=== PATIENT | male | born 1965 | race Caucasian/White ===

== ENCOUNTER → 2021-02-01 15:32 | Outpatient (BNVA) | payer OTHER, SELFPAY | PROVIDERS: Visit Provider Nurse Practitioner Family | DX: Z20.822 Contact with and (suspected) exposure to COVID-19 (principal); J06.9 Acute upper respiratory infection, unspecified | CPT/HCPCS: 87635 ==

== ENCOUNTER 2024-08-16 08:11 | Emergency (ER) | payer OTHER, SELFPAY ==
[2024-08-16 08:21] VITALS: BP 182/113; PULSE 90; RESP 17; TEMP 36.4; O2SAT 97; BMI 32.3
[2024-08-16 08:23] VITALS: BP 212/121
--- NOTE | 2024-08-16 08:27 | ED_ITS ---
HPI - Male Genitourinary General: Chief complaint: Urogenital-Male Stated complaint: unable to urinate Time Seen by Provider: 08/16/24 08:28 History of Present Illness: Patient presents to the ER with bladder pain and acute urinary retention. He says he has been unable to urinate anything at all since 4 AM this morning patient has had this happen before but never been this severe. Patient does not have any prostate history that he is aware of. Related Data Home Medications ?Medication ?Instructions ?Recorded ?Confirmed No Known Home Medications 08/16/2407/20 Allergies Allergy/AdvReac Type Severity Reaction Status Date / Time No Known Allergies Allergy Unverified 02/24/24 17:57 Review of Systems General: Reports: 10 or more systems reviewed and unremarkable except in HPI and below PFSH ED PFSH: Social History Smoking and tobacco/nicotine status: never used tobacco/nicotine Physical Exam Neck/C-Spine: COMMON NORMALS: no JVD Chest: COMMONS NORMALS: normal inspection of the chest and normal palpation of entire chest wall Resp: COMMON NORMALS: normal respiratory effort, No retractions, No use of accessory muscles and clear to auscultation bilaterally AUSCULTATION: clear to auscultation bilaterally Cardio: COMMON NORMALS: no JVD, regular rate, regular rhythm, S1 normal heart sound present, S2 normal heart sound present, No gallops present (Cardio), No clicks present (Cardio), No murmurs present (Cardio) and No rub (Cardio) RATE: regular rate RHYTHM: regular rhythm HEART SOUNDS: S1 normal heart sound present and S2 normal heart sound present GI: COMMON NORMALS: Normal to inspection, nondistended, normoactive bowel sounds present, Soft to palpation, non-tender, No hepatosplenomegaly present and no masses PALPATION: Yes Soft to palpation and Yes No hepatosplenomegaly present Course Vital Signs: Vital signs: Vital Signs Temperature 97.6 F 08/16/24 08:21 Pulse Rate 80 08/16/24 09:55 Respiratory Rate 17 08/16/24 08:21 Blood Pressure 140/87 08/16/24 09:55 Pulse Oximetry 99 08/16/24 09:55 Oxygen Delivery Me thod Room Air 08/16/24 08:21 MDM - Male Medical Decision Making Patient presented with acute urinary retention, Moody catheter was placed approximately 600 mL urine was obtained. Patient felt immediate relief. Urinalysis was unremarkable except for 2+ blood probably due to the catheter placement. Discussion was made to the patient and the about whether we keep the catheter in or not they are willing to DC the catheter in and go home on a trial since this is his first time with retention. Medical Records I reviewed the patient's medical records. Lab Data I reviewed the patient's lab results. Laboratory Results Urine Color Yellow (Yellow) 08/16/24 08:49 Urine Appearance Clear (CLEAR) 08/16/24 08:49 Urine pH 7 (5-7) 08/16/24 08:49 Ur Specific [place] 1.010 (1.005-1.030) 08/16/24 08:49 Urine Protein Neg (Negative) 08/16/24 08:49 Urine Glucose (UA) Norm (Normal) 08/16/24 08:49 Urine Ketones Negative (Negative) 08/16/24 08:49 Urine Blood 2+ (Negative) H 08/16/24 08:49 Urine Nitrate Negative (Negative) 08/16/24 08:49 Urine Bilirubin Neg (Negative) 08/16/24 08:49 Urine Urobilinogen Neg mg/dL (Negative) 08/16/24 08:49 Ur Leukocyte Esterase Negative (Negative) 08/16/24 08:49 Urine RBC 6-10 /hpf (0-2) 08/16/24 08:49 Urine WBC 0-5 /hpf (0-5) 08/16/24 08:49 Ur Squamous Epith Cells 0-5 /hpf (0-5) 08/16/24 08:49 Amorphous Sediment Not Reportable 08/16/24 08:49 Urine Bacteria None seen /hpf (NONE) 08/16/24 08:49 Hyaline Casts 0-4 /lpf H 08/16/24 08:49 All radiology interpretation(s) finalized by discharge Discharge Plan Discharge Patient Disposition: Home Clinical Impression: Acute retention of urine Condition: Stable Prescriptions: No Action No Known Home Medications Discharge Orders: Discharge ED (Routine); Ordered 08/16/24 Ordered By: Chris Pelayo Patient Instructions: Urinary Retention in Men (ED) Activity Restrictions/Additional Instructions: Please push plenty of fluids and continually try to urinate when needed. If you are unable to urinate please return to the ER and we will have to replace the Moody catheter. Thank you for choosing [facility] for your healthcare needs today. Please realize that you were seen in the emergency department and that we are providing you with an emergency medical screening exam and this may not be a complete and all exclusive of all testing and/or medical workup we may need to determine your element or severity of your illness. It is very important that you follow-up as instructed with your primary care provider or specialist for the additional evaluation and to discuss your medical treatment plan. You may return to the emergency department should you have conc erns or if your condition changes or worsens in any way. Print Language: Bahamian Coding Level of Care Code ED School Age Program Teacher for Zeina Lovelace
[2024-08-16 09:22] LABS: Bacteria Urine None Seen /hpf; Hyaline Casts Urine 0-4 /lpf; Squamous Epithelial Cell Urine 0-5 /hpf (0-5); WBC Urine 0-5 /hpf (0-5)
[2024-08-16 09:23] VITALS: BP 146/87
[2024-08-16 09:27] LABS: Add Urine Microscopic? YES; Bilirubin Urine Neg (Negative); Blood Urine 2+ (Negative); Glucose Urine UA Norm (Normal); Ketones Urine Negative (Negative); Leukocyte Esterase Urine Negative (Negative); Nitrate Urine Negative (Negative); Protein Urine Neg (Negative); Urine Appearance Clear (CLEAR); Urine Color Yellow (Yellow); Urobilinogen Urine Neg (Negative); pH Urine 7 (5-7)
[2024-08-16 09:55] VITALS: BP 140/87; PULSE 80; O2SAT 99
--- NOTE | 2024-08-16 09:57 | PC.NURSE ---
Removed patient's sauceda prior to discharge.
== END 2024-08-16 09:57 | disposition home or self-care (01) ==
PROVIDERS: Emergency Provider Emergency Medicine
DX: R33.8 Other retention of urine (principal)
CPT/HCPCS: 51702; 81001; 99283

== ENCOUNTER 2024-09-25 05:22 | Emergency (ER) | payer OTHER, SELFPAY ==
[2024-09-25 05:25] VITALS: BP 197/108; PULSE 89; RESP 16; TEMP 37.1; O2SAT 98; BMI 32.3
--- NOTE | 2024-09-25 05:37 | ED_ITS ---
Documented by User: Gregory Broderick MD 09/25/24 05:51 HPI - Male Genitourinary 2 General: Chief complaint: Urogenital-Male Stated complaint: Can't Pee Time Seen by Provider: 09/25/24 05:24 History of Present Illness: Patient presents emerged permit with complaint of urinary retention. Patient states that he has not been able to urinate since several hours ago. He states that 1 month ago he had a episode of urinary retention and had a Moody catheter placed. He had his Moody catheter removed but never followed up with urology. He has been taking an [id number] prostate supplement for the past month. He states that he was urinating fine until tonight. Has some suprapubic tenderness because of unable to urinate. Related Data Previous Rx's ?Medication ?Instructions ?Recorded cephalexin 500 mg tablet 500 mg PO TID 7 days #21 tab s 09/25/24 tamsulosin 0.4 mg capsule (Flomax) 0.4 mg PO DAILY #30 caps 09/25/24 Allergies Allergy/AdvReac Type Severity Reaction Status Date / Time No Known Allergies Allergy Verified 09/25/24 05:29 [facility] ED 2 PFSH: Social History Smoking and tobacco/nicotine status: never used tobacco/nicotine Physical Exam 2 Const: COMMON NORMALS: no acute distress, average body habitus, patient oriented x3, no limitations, healthy appearing, alert and well nourished Neck/C-Spine: COMMON NORMALS: no JVD Resp: COMMON NORMALS: normal respiratory effort, No retractions, No use of accessory muscles, clear to auscultation bilaterally and percussion normal A USCULTATION: clear to auscultation bilaterally PERCUSSION: percussion normal Cardio: COMMON NORMALS: no JVD, regular rate, regular rhythm, S1 normal heart sound present, S2 normal heart sound present, No gallops present (Cardio), No clicks present (Cardio), No murmurs present (Cardio), No rub (Cardio) and Peripheral pulses 2+ throughout RATE: regular rate RHYTHM: regular rhythm HEART SOUNDS: S1 normal heart sound present and S2 normal heart sound present PERIPHERAL PULSES: Peripheral pulses 2+ throughout GI: COMMON NORMALS: Normal to inspection, nondistended, normoactive bowel sounds present, Soft to palpation, No hepatosplenomegaly present, no masses and no bruits; negative for non-tender (Suprapubic tenderness) PALPATION: Yes Soft to palpation and Yes No hepatosplenomegaly present Neuro: COMMON NORMALS: patient oriented x3 SENSORIUM/ORIENTATION: Yes alert Course 2 Vital Signs: Vital signs: Vital Signs Temperature 98.8 F 09/25/24 05:25 Pulse Rate 65 09/25/24 06:41 Respiratory Rate 16 09/25/24 05:25 Blood Pressure 157/91 09/25/24 06:41 Pulse Oximetry 96 09/25/24 06:41 Oxygen Delivery Me thod Room Air 09/25/24 05:25 MDM - Male Medical Decision Making Patient presents emerged part with complaint of urinary retention. Had a history of similar [address] Moody catheter and start patient on Flomax. Patient will need to follow-up with urology. Lab Data 09/25/24 06:16 09/25/24 06:16 Laboratory Results WBC 5.75 10^3/uL (3.29-11.43) 09/25/24 06:16 RBC 4.79 10^6/uL (3.85-5.65) 09/25/24 06:16 Hgb 13.80 g/dL (11.27-16.99) 09/25/24 06:16 Hct 42.5 % (37-53) 09/25/24 06:16 MCV 88.7 fl (82-101) 09/25/24 06:16 MCH 28.8 pg (27-33) 09/25/24 06:16 MCHC 32.5 g/dL (30-55) 09/25/24 06:16 RDW 13.8 % (12.1-15.1) 09/25/24 06:16 Plt Count 163 10^3/cmm (157-399) 09/25/24 06:16 MPV 10.1 fL (7.4-10.4) 09/25/24 06:16 Neut % (Auto) 68.6 % 09/25/24 06:16 Lymph % (Auto) 19.7 % 09/25/24 06:16 [place] % (Auto) 8.5 % 09/25/24 06:16 Eos % (Auto) 1.6 % 09/25/24 06:16 Baso % (Auto) 0.9 % 09/25/24 06:16 Neut # (Auto) 3.95 10^3/uL (1.8-7.7) 09/25/24 06:16 Lymph # (Auto) 1.1 10^3/uL (0.8-4.8) 09/25/24 06:16 [place] # (Auto) 0.5 10^3/uL (0.2-0.9) 09/25/24 06:16 Eos # (Auto) 0.1 10^3/uL (0.0-0.8) 09/25/24 06:16 Baso # (Auto) 0.1 10^3/uL (0.0-0.1) 09/25/24 06:16 Nucleated RBC % (auto) 0 % 09/25/24 06:16 Nucleated RBCs # 0.0 /100WBC 09/25/24 06:16 Sodium 139 mmol/L (136-145) 09/25/24 06:16 Potassium 3.9 mmol/L (3.5-5.1) 09/25/24 06:16 Chloride 104 mmol/L (98-107) 09/25/24 06:16 Carbon Dioxide 26 mmol/L (22-29) 09/25/24 06:16 Anion Gap 12.9 (5-19) 09/25/24 06:16 BUN 15 mg/dL (6-20) 09/25/24 06:16 Creatinine 1.1 mg/dL (0.7-1.2) 09/25/24 06:16 GFR Calculation 68.5 mL/min (90-130) L 09/25/24 06:16 Glucose 126 mg/dL (65-115) H 09/25/24 06:16 Calculated Osmolality 290 mOsm/kg (285-295) 09/25/24 06:16 Calcium 9.0 mg/dL (8.5-10.5) 09/25/24 06:16 Total Bilirubin 0.3 mg/dL (0.15-1.2) 09/25/24 06:16 AST 15 U/L (0-40) 09/25/24 06:16 ALT 20 U/L (0-41) 09/25/24 06:16 Alkaline Phosphatase 112 U/L (40-130) 09/25/24 06:16 Total Protein 6.9 g/dL (6.6-8.7) 09/25/24 06:16 Albumin 3.7 g/dL (3.5-5.2) 09/25/24 06:16 Globulin 3.2 g/dL (1.3-4.6) 09/25/24 06:16 Urine Color Yellow (Yellow) 09/25/24 05:43 Urine Appearance Clear (CLEAR) 09/25/24 05:43 Urine pH 6.5 (5-7) 09/25/24 05:43 Ur Specific [place] 1.009 (1.005-1.030) 09/25/24 05:43 Urine Protein Negative (Negative) 09/25/24 05:43 Urine Glucose (UA) Negative (Normal) 09/25/24 05:43 Urine Ketones Negative (Negative) 09/25/24 05:43 Urine Blood Negative (Negative) 09/25/24 05:43 Urine Nitrate Negative (Negative) 09/25/24 05:43 Urine Bilirubin Negative (Negative) 09/25/24 05:43 Urine Urobilinogen 0.2 mg/dL (Negative) 09/25/24 05:43 Ur Leukocyte Esterase Negative (Negative) 09/25/24 05:43 Urine RBC 0-2 /hpf (0-2) 09/25/24 05:43 Urine WBC 0-5 /hpf (0-5) 09/25/24 05:43 Ur Squamous Epith Cells 0-5 /hpf (0-5) 09/25/24 05:43 Amorphous Sediment Not Reportable 09/25/24 05:43 Urine Bacteria None seen /hpf (NONE) 09/25/24 05:43 Hyaline Casts 0-4 /lpf H 09/25/24 05:43 No radiology studies performed this visit Discharge Plan Discharge Patient Disposition: Home Clinical Impression: Urinary retention Condition: Stable Prescriptions: New tamsulosin [Flomax] 0.4 mg capsule 0.4 mg PO DAILY Qty: 30 0RF cephalexin 500 mg tablet 500 mg PO TID 7 Days Qty: 21 0RF Discharge Orders: Discharge ED (Routine); Ordered 09/25/24 Ordered By: Olga Delcid Referrals: Bismark Wilson [Referring, Urology] - 4-7 days Referral Note: Please call for follow-up with Dr. Wilson or with the urologist of your choosing Discharge Diet: Usual diet Discharge Activity: Increase activity as tolerated Patient Instructions: Moody Catheter Placement and Care (ED), How to Change a Catheter Drainage Bag (DC), Opioid Safety, Pain Management Activity Restrictions/Additional Instructions: Thank you for choosing [facility] for your healthcare needs today. You have been screened and evaluated and felt safe for discharge. Health conditions do change or evolve sometimes and as such it is important that you follow up with your Primary Doctor to be re checked, 3-5 days is a general good time frame for follow up. You are always welcome to return to the ED for re assessment if your symptoms are worsening or you have new concerns Print Language: Chinese Coding Level of Care Code ED Real Estate Teacher for Chg Fwd Documented by User: Olga Delcid MD 09/25/24 06:46 HPI - Male Genitourinary 2 General: Chief complaint: Urogenital-Male Stated complaint: Can't Pee Time Seen by Provider: 09/25/24 05:24 Related Data Previous Rx's ?Medication ?Instructions ?Recorded cephalexin 500 mg tablet 500 mg PO TID 7 days #21 tab s 09/25/24 tamsulosin 0.4 mg capsule (Flomax) 0.4 mg PO DAILY #30 caps 09/25/24 Allergies Allergy/AdvReac Type Severity Reaction Status Date / Time No Known Allergies Allergy Verified 09/25/24 05:29 [facility] ED 2 PFS: Social History Smoking and tobacco/nicotine status: never used tobacco/nicotine Course 2 Vital Signs: Vital signs: Vital Signs Temperature 98.8 F 09/25/24 05:25 Pulse Rate 65 09/25/24 06:41 Respiratory Rate 16 09/25/24 05:25 Blood Pressure 157/91 09/25/24 06:41 Pulse Oximetry 96 09/25/24 06:41 Oxygen Delivery Me thod Room Air 09/25/24 05:25 MDM - Male Medical Decision Making Patient presents emerged part with complaint of urinary retention. Had a history of similar [address] Moody catheter and start patient on Flomax. Patient will need to follow-up with urology. Patient care transitioned to fl at shift change. 750 mL out. Moody being left in. Home on Flomax and Keflex. Follow with urology. Lab Data 09/25/24 06:16 09/25/24 06:16 Laboratory Results WBC 5.75 10^3/uL (3.29-11.43) 09/25/24 06:16 RBC 4.79 10^6/uL (3.85-5.65) 09/25/24 06:16 Hgb 13.80 g/dL (11.27-16.99) 09/25/24 06:16 Hct 42.5 % (37-53) 09/25/24 06:16 MCV 88.7 fl (82-101) 09/25/24 06:16 MCH 28.8 pg (27-33) 09/25/24 06:16 MCHC 32.5 g/dL (30-55) 09/25/24 06:16 RDW 13.8 % (12.1-15.1) 09/25/24 06:16 Plt Count 163 10^3/cmm (157-399) 09/25/24 06:16 MPV 10.1 fL (7.4-10.4) 09/25/24 06:16 Neut % (Auto) 68.6 % 09/25/24 06:16 Lymph % (Auto) 19.7 % 09/25/24 06:16 [place] % (Auto) 8.5 % 09/25/24 06:16 Eos % (Auto) 1.6 % 09/25/24 06:16 Baso % (Auto) 0.9 % 09/25/24 06:16 Neut # (Auto) 3.95 10^3/uL (1.8-7.7) 09/25/24 06:16 Lymph # (Auto) 1.1 10^3/uL (0.8-4.8) 09/25/24 06:16 [place] # (Auto) 0.5 10^3/uL (0.2-0.9) 09/25/24 06:16 Eos # (Auto) 0.1 10^3/uL (0.0-0.8) 09/25/24 06:16 Baso # (Auto) 0.1 10^3/uL (0.0-0.1) 09/25/24 06:16 Nucleated RBC % (auto) 0 % 09/25/24 06:16 Nucleated RBCs # 0.0 /100WBC 09/25/24 06:16 Sodium 139 mmol/L (136-145) 09/25/24 06:16 Potassium 3.9 mmol/L (3.5-5.1) 09/25/24 06:16 Chloride 104 mmol/L (98-107) 09/25/24 06:16 Carbon Dioxide 26 mmol/L (22-29) 09/25/24 06:16 Anion Gap 12.9 (5-19) 09/25/24 06:16 BUN 15 mg/dL (6-20) 09/25/24 06:16 Creatinine 1.1 mg/dL (0.7-1.2) 09/25/24 06:16 GFR Calculation 68.5 mL/min (90-130) L 09/25/24 06:16 Glucose 126 mg/dL (65-115) H 09/25/24 06:16 Calculated Osmolality 290 mOsm/kg (285-295) 09/25/24 06:16 Calcium 9.0 mg/dL (8.5-10.5) 09/25/24 06:16 Total Bilirubin 0.3 mg/dL (0.15-1.2) 09/25/24 06:16 AST 15 U/L (0-40) 09/25/24 06:16 ALT 20 U/L (0-41) 09/25/24 06:16 Alkaline Phosphatase 112 U/L (40-130) 09/25/24 06:16 Total Protein 6.9 g/dL (6.6-8.7) 09/25/24 06:16 Albumin 3.7 g/dL (3.5-5.2) 09/25/24 06:16 Globulin 3.2 g/dL (1.3-4.6) 09/25/24 06:16 Urine Color Yellow (Yellow) 09/25/24 05:43 Urine Appearance Clear (CLEAR) 09/25/24 05:43 Urine pH 6.5 (5-7) 09/25/24 05:43 Ur Specific [place] 1.009 (1.005-1.030) 09/25/24 05:43 Urine Protein Negative (Negative) 09/25/24 05:43 Urine Glucose (UA) Negative (Normal) 09/25/24 05:43 Urine Ketones Negative (Negative) 09/25/24 05:43 Urine Blood Negative (Negative) 09/25/24 05:43 Urine Nitrate Negative (Negative) 09/25/24 05:43 Urine Bilirubin Negative (Negative) 09/25/24 05:43 Urine Urobilinogen 0.2 mg/dL (Negative) 09/25/24 05:43 Ur Leukocyte Esterase Negative (Negative) 09/25/24 05:43 Urine RBC 0-2 /hpf (0-2) 09/25/24 05:43 Urine WBC 0-5 /hpf (0-5) 09/25/24 05:43 Ur Squamous Epith Cells 0-5 /hpf (0-5) 09/25/24 05:43 Amorphous Sediment Not Reportable 09/25/24 05:43 Urine Bacteria None seen /hpf (NONE) 09/25/24 05:43 Hyaline Casts 0-4 /lpf H 09/25/24 05:43 Discharge Plan Discharge Patient Disposition: Home Clinical Impression: Urinary retention Condition: Stable Prescriptions: New tamsulosin [Flomax] 0.4 mg capsule 0.4 mg PO DAILY Qty: 30 0RF cephalexin 500 mg tablet 500 mg PO TID 7 Days Qty: 21 0RF Discharge Orders: Discharge ED (Routine); Ordered 09/25/24 Ordered By: Olga Delcid Referrals: Bismark Wilson [Referring, Urology] - 4-7 days Referral Note: Please call for follow-up with Dr. Wilson or with the urologist of your choosing Discharge Diet: Usual diet Discharge Activity: Increase activity as tolerated Patient Instructions: Moody Catheter Placement and Care (ED), How to Change a Catheter Drainage Bag (DC), Opioid Safety, Pain Management Activity Restrictions/Additional Instructions: Thank you for choosing [facility] for your healthcare needs today. You have been screened and evaluated and felt safe for discharge. Health conditions do change or evolve sometimes and as such it is important that you follow up with your Primary Doctor to be re checked, 3-5 days is a general good time frame for follow up. You are always welcome to return to the ED for re assessment if your symptoms are worsening or you have new concerns Print Language: Chinese Coding Level of Care Code ED Real Estate Teacher for Zeina Lovelace
[2024-09-25 05:50] LABS: Bilirubin Urine Negative (Negative); Blood Urine Negative (Negative); Glucose Urine UA Negative (Normal); Ketones Urine Negative (Negative); Leukocyte Esterase Urine Negative (Negative); Nitrate Urine Negative (Negative); Protein Urine Negative (Negative); Specific Gravity, Urine 1.009 (1.005-1.030); Urine Appearance Clear (CLEAR); Urine Color Yellow (Yellow); Urobilinogen Urine 0.2 mg/dL (Negative); pH Urine 6.5 (5-7)
[2024-09-25 05:54] LABS: Add Urine Microscopic? YES; Bacteria Urine None Seen /hpf; Hyaline Casts Urine 0-4 /lpf; RBC Urine 0-2 /hpf (0-2); Squamous Epithelial Cell Urine 0-5 /hpf (0-5); WBC Urine 0-5 /hpf (0-5)
[2024-09-25 06:13] VITALS: BP 157/91; PULSE 72; O2SAT 95
[2024-09-25 06:22] LABS: Basophils # 0.1 10^3/uL (0.0-0.1); Basophils % 0.9 %; Eosinophils # 0.1 10^3/uL (0.0-0.8); Eosinophils % 1.6 %; Hematocrit 42.5 % (37-53); Lymphocytes # 1.1 10^3/uL (0.8-4.8); Lymphocytes % 19.7 %; Mean Corpuscular HGB Conc 32.5 g/dL (30-55); Mean Corpuscular Hemoglobin 28.8 pg (27-33); Mean Corpuscular Volume 88.7 fl (82-101); Mean Platelet Volume 10.1 fL (7.4-10.4); Monocytes # 0.5 10^3/uL (0.2-0.9); Monocytes % 8.5 %; Neutrophils # 3.95 10^3/uL (1.8-7.7); Neutrophils % 68.6 %; Nucleated Red Blood Cells % 0 %; Platelet Count 163 10^3/cmm (157-399); Red Blood Count 4.79 10^6/uL (3.85-5.65); Red Cell Distribution Width 13.8 % (12.1-15.1); White Blood Count 5.75 10^3/uL (3.29-11.43)
[2024-09-25 06:40] LABS: Alanine Aminotransferase 20 U/L (0-41); Albumin Level 3.7 g/dL (3.5-5.2); Alkaline Phosphatase 112 U/L (40-130); Anion Gap 12.9 (5-19); Aspartate Amino Transferase 15 U/L (0-40); Blood Urea Nitrogen 15 mg/dL (6-20); Carbon Dioxide 26 mmol/L (22-29); Chloride 104 mmol/L (98-107); Creatinine Clr Calc Pharmacy 86.5465; Globulin 3.2 g/dL (1.3-4.6); Glomerular Filtration Rate 68.5 mL/min (90-130); Glucose 126 mg/dL (65-115); Osmolality Calculated 290 mOsm/kg (285-295); Potassium 3.9 mmol/L (3.5-5.1); Sodium 139 mmol/L (136-145); Total Bilirubin 0.3 mg/dL (0.15-1.2); Total Protein 6.9 g/dL (6.6-8.7)
[2024-09-25 06:41] VITALS: BP 157/91; PULSE 65; O2SAT 96
--- NOTE | 2024-09-25 07:00 | PC.NURSE ---
Moody catheter switched to leg bag and educated on how to empty. Patient educated to followup with urology.
[2024-09-25 07:01] VITALS: BP 157/91; PULSE 66; O2SAT 95
== END 2024-09-25 07:02 | disposition home or self-care (01) ==
PROVIDERS: Emergency Medicine; Emergency Provider Emergency Medicine
DX: R33.9 Retention of urine, unspecified (principal)
CPT/HCPCS: 36415; 80053; 81001; 85025; 99283

== ENCOUNTER 2024-10-04 00:58 | Emergency (ER) | payer OTHER, SELFPAY ==
[2024-10-04] VITALS (8 sets, daily range): BP systolic 147–173; BP diastolic 76–121; PULSE 89–131; RESP 14–18; TEMP 37; O2SAT 91–99; BMI 32.3
--- NOTE | 2024-10-04 01:44 | CTR_ITS ---
PROCEDURE INFORMATION: Exam: CT Abdomen And Pelvis With Contrast Exam date and time: 10/04/2024 2:18 AM Age: 58 years old Clinical indication: Abdominal pain; Localized; Lower abd pain with gross hematuria. Moody in place. ; Additional info: Abd pain, gross hematuria TECHNIQUE: Imaging protocol: Computed tomography of the abdomen and pelvis with contrast. Radiation optimization: All CT scans at this facility use at least one of these dose optimization techniques: automated exposure control; mA and/or kV adjustment per patient size (includes targeted exams where dose is matched to clinical indication); or iterative reconstruction. Contrast material: OMNI 350; Contrast volume: 100 ml; Contrast route: INTRAVENOUS (IV); COMPARISON: No relevant prior studies available. RADIATION DOSE METRICS: Total DLP (mGy-cm): 933.03 FINDINGS: Lungs: Minimal bibasilar atelectasis. Liver: Decreased density of the liver, evidence for fatty infiltration. Gallbladder and biliary ducts: Normal. No calcified stones. No ductal dilation. Pancreas: Normal. No ductal dilation. Spleen: Multiple granulomas in the spleen. Adrenal glands: Normal. No mass. Kidneys and ureters: Normal. No hydronephrosis. Stomach and bowel: Increased stool within the colon. No dilated bowel. Appendix: No evidence of appendicitis. Intraperitoneal space: Unremarkable. No free air. No significant fluid collection. Vasculature: Vascular calcification in the aorta and iliac vessels. No aneurysm. Lymph nodes: Unremarkable. No enlarged lymph nodes. Urinary bladder: The bladder is distended with heterogeneous material and by a Moody catheter . Reproductive: Enlarged prostate measuring 6.7 cm. Bones/joints: Lumbar spine degenerative changes. No acute fracture. Soft tissues: Unremarkable. CT/CT abdomen pelvis w con* [id number] IMPRESSION: 1. The bladder is distended with heterogeneous material and by a Moody catheter . This may represent blood products versus mass. Correlation with ultrasound suggested 2. Enlarged prostate measuring 6.7 cm. 3. Increased stool within the colon. No dilated bowel. 4. Minimal bibasilar atelectasis.
--- NOTE | 2024-10-04 01:59 | ED_ITS ---
HPI - Male Genitourinary 2 General: Chief complaint: Urogenital-Male Stated complaint: severe pain and peeing blood Time Seen by Provider: 10/04/24 01:30 History of Present Illness: 58-year-old male with history of urinary retention. He presents with gross hematuria, inability to fully urinate, and increasing testicular, penile, and pelvic pain. He had a Moody removed on . This is day 3. Pain was sudden onset last evening. No fever. No vomiting. He has not had imaging. Related Data Previous Rx's ?Medication ?Instructions ?Recorded tamsulosin 0.4 mg capsule (Flomax) 0.4 mg PO DAILY #30 caps 09/25/24 Allergies Allergy/AdvReac Type Severity Reaction Status Date / Time No Known Allergies Allergy Verified 09/25/24 05:29 [facility] ED 2 PFSH: Social History Smoking and tobacco/nicotine status: never used tobacco/nicotine Physical Exam 2 Const: GENERAL APPEARANCE: cooperative, in distress (in pain) and diaphoretic; not frail appearing HENMT: COMMON NORMALS: normocephalic, atraumatic and Normal external nose present HEAD & SCALP: normocephalic and atraumatic FACE & SINUS: normal facial exam and face symmetric NOSE: Normal external nose present Eye: COMMON NORMALS: Equal, round and reactive pupils present and EOMs intact bilaterally PUPIL: Yes Equal, round and reactive pupils present Neck/C-Spine: GENERAL: Yes trachea midline Chest: CHEST: Yes Symmetrical chest wall rise Resp: COMMON NORMALS: normal respiratory effort, No retractions, No use of accessory muscles and clear to auscultation bilaterally AUSCULTATION: clear to auscultation bilaterally Cardio: COMMON NORMALS: regular rate and regular rhythm RATE: regular rate RHYTHM: regular rhythm GI: INSPECTION: Yes abdominal distension (Suprapubic) Extremity: COMMON NORMALS: no pedal edema Neuro: DELGADO COMA SCALE: document GCS findings Conway coma scale eye opening: Spontaneous Delgado coma scale verbal response: Orientated Conway coma scale motor response: Obey commands Delgado coma scale total score: 15 S ENSORY EXAM: Yes extremities (intact) Psych: COMMON NORMALS: speech normal SPEECH: Yes normal speech Skin: COMMON NORMALS: no rashes or lesions noted GENERAL SKIN EXAM: no rashes or lesions noted Course 2 Vital Signs: Vital signs: Vital Signs Temperature 98.6 F 10/04/24 01:07 Pulse Rate 101 H 10/04/24 04:21 Respiratory Rate 14 10/04/24 04:21 Blood Pressure 166/99 10/04/24 04:21 Pulse Oximetry 91 10/04/24 04:21 Oxygen Delivery Me thod Room Air 10/04/24 04:21 MDM - Male Medical Decision Making Immediate return of gross blood on Moody catheter placement. Patient's pressure is significantly relieved. He is afebrile. Initially was tachycardic, but this is improved. He is now normotensive as well. About 1 hour after Moody insertion, the patient stopped draining. He began to feel significant pressure again. Attempted flushing was made, without improvement. Moody was withdrawn, and three-way catheter placed for CBI. After placement of CBI, with infusion, he is slowly draining again. He is resting comfortably after IV Dilaudid. Creatinine is 1.3. CRP is 6. Hemoglobin is 12.5.CT shows bladder distention with heterogenous material, likely blood. Prostate is enlarged. Will have to continue CBI at this point. We have no urology coverage at this institution. He has seen the midlevel provider for Dr. Wilson in [place]. Will attempt to contact them for potential transfer. Spoke with urology at [facility]. They are willing to take in transfer. He will go to the ER there. Waiting for ambulance availability. He remained stable. CBI is clamped at the moment per urology recommendation. Lab Data 10/04/24 02:36 10/04/24 02:36 Radiology Impressions Abdomen/Pelvis CT 10/04/24 01:44 IMPRESSION: 1. The bladder is distended with heterogeneous material and by a Moody catheter . This may represent blood products versus mass. Correlation with ultrasound suggested 2. Enlarged prostate measuring 6.7 cm. 3. Increased stool within the colon. No dilated bowel. 4. Minimal bibasilar atelectasis. Laboratory Results WBC 7.07 10^3/uL (3.29-11.43) 10/04/24 02:36 RBC 4.36 10^6/uL (3.85-5.65) 10/04/24 02:36 Hgb 12.50 g/dL (11.27-16.99) 10/04/24 02:36 Hct 39.6 % (37-53) 10/04/24 02:36 MCV 90.8 fl (82-101) 10/04/24 02:36 MCH 28.7 pg (27-33) 10/04/24 02:36 MCHC 31.6 g/dL (30-55) 10/04/24 02:36 RDW 14.0 % (12.1-15.1) 10/04/24 02:36 Plt Count 180 10^3/cmm (157-399) 10/04/24 02:36 MPV 10.6 fL (7.4-10.4) H 10/04/24 02:36 Neut % (Auto) 72.5 % 10/04/24 02:36 Lymph % (Auto) 15.6 % 10/04/24 02:36 [place] % (Auto) 8.8 % 10/04/24 02:36 Eos % (Auto) 1.8 % 10/04/24 02:36 Baso % (Auto) 0.6 % 10/04/24 02:36 Neut # (Auto) 5.13 10^3/uL (1.8-7.7) 10/04/24 02:36 Lymph # (Auto) 1.1 10^3/uL (0.8-4.8) 10/04/24 02:36 [place] # (Auto) 0.6 10^3/uL (0.2-0.9) 10/04/24 02:36 Eos # (Auto) 0.1 10^3/uL (0.0-0.8) 10/04/24 02:36 Baso # (Auto) 0.0 10^3/uL (0.0-0.1) 10/04/24 02:36 Nucleated RBC % (auto) 0 % 10/04/24 02:36 Nucleated RBCs # 0.0 /100WBC 10/04/24 02:36 PT 13.00 SECONDS (12.1-14.9) 10/04/24 02:36 INR 0.92 (0.8-1.2) 10/04/24 02:36 APTT 27.4 SECONDS (23.9-36.7) 10/04/24 02:36 Sodium 138 mmol/L (136-145) 10/04/24 02:36 Potassium 4.1 mmol/L (3.5-5.1) 10/04/24 02:36 Chloride 104 mmol/L (98-107) 10/04/24 02:36 Carbon Dioxide 22 mmol/L (22-29) 10/04/24 02:36 Anion Gap 16.1 (5-19) 10/04/24 02:36 BUN 19 mg/dL (6-20) 10/04/24 02:36 Creatinine 1.3 mg/dL (0.7-1.2) H 10/04/24 02:36 GFR Calculation 56.5 mL/min (90-130) L 10/04/24 02:36 Glucose 140 mg/dL (65-115) H 10/04/24 02:36 Calculated Osmolality 291 mOsm/kg (285-295) 10/04/24 02:36 Calcium 8.3 mg/dL (8.5-10.5) L 10/04/24 02:36 Total Bilirubin 0.2 mg/dL (0.15-1.2) 10/04/24 02:36 AST 12 U/L (0-40) 10/04/24 02:36 ALT 17 U/L (0-41) 10/04/24 02:36 Alkaline Phosphatase 99 U/L (40-130) 10/04/24 02:36 C-Reactive Protein 5.9 mg/L (0.0-4.9) H 10/04/24 02:36 Total Protein 6.3 g/dL (6.6-8.7) L 10/04/24 02:36 Albumin 3.5 g/dL (3.5-5.2) 10/04/24 02:36 Globulin 2.8 g/dL (1.3-4.6) 10/04/24 02:36 Lipase 29 U/L (13-60) 10/04/24 02:36 Blood Type A Positive 10/04/24 02:36 Rho(D) Type Rh positive 10/04/24 02:36 Antibody Screen Negative 10/04/24 02:36 All radiology interpretation(s) finalized by discharge Discharge Plan Discharge Patient Disposition: Xfer Short-Term Hosp Clinical Impression: Acute retention of urine, Gross hematuria Condition: Stable Print Language: Romansh Coding Level of Care Code ED [employer]ician for Zeina Lovelace
[2024-10-04] MEDS: morphine 4 mg/mL SDV 1 mL IVP (02:03)
[2024-10-04] MEDS: ondansetron 2 mg/ML SDV 2 mL 4 MG IVP ×2 (02:03→03:24)
[2024-10-04] MEDS: iohexol 350 mg/mL 500 mL Btl (per mL) IV (02:19)
[2024-10-04 02:46] LABS: Basophils % 0.6 %; Eosinophils # 0.1 10^3/uL (0.0-0.8); Eosinophils % 1.8 %; Hematocrit 39.6 % (37-53); Lymphocytes # 1.1 10^3/uL (0.8-4.8); Lymphocytes % 15.6 %; Mean Corpuscular HGB Conc 31.6 g/dL (30-55); Mean Corpuscular Hemoglobin 28.7 pg (27-33); Mean Corpuscular Volume 90.8 fl (82-101); Mean Platelet Volume 10.6 fL (7.4-10.4); Monocytes # 0.6 10^3/uL (0.2-0.9); Monocytes % 8.8 %; Neutrophils # 5.13 10^3/uL (1.8-7.7); Neutrophils % 72.5 %; Nucleated Red Blood Cells % 0 %; Platelet Count 180 10^3/cmm (157-399); Red Blood Count 4.36 10^6/uL (3.85-5.65); White Blood Count 7.07 10^3/uL (3.29-11.43)
[2024-10-04] MEDS: lidocaine 2% Urojet 20 mL TOPICAL (03:00)
[2024-10-04 03:06] LABS: INR 0.92 (0.8-1.2)
[2024-10-04 03:07] LABS: Partial Thromboplastin Time 27.4 SECONDS (23.9-36.7)
[2024-10-04 03:15] LABS: Alanine Aminotransferase 17 U/L (0-41); Albumin Level 3.5 g/dL (3.5-5.2); Alkaline Phosphatase 99 U/L (40-130); Anion Gap 16.1 (5-19); Aspartate Amino Transferase 12 U/L (0-40); Blood Urea Nitrogen 19 mg/dL (6-20); C Reactive Protein 5.9 mg/L (0.0-4.9); Calcium 8.3 mg/dL (8.5-10.5); Carbon Dioxide 22 mmol/L (22-29); Chloride 104 mmol/L (98-107); Creatinine Clr Calc Pharmacy 73.2316; Globulin 2.8 g/dL (1.3-4.6); Glomerular Filtration Rate 56.5 mL/min (90-130); Glucose 140 mg/dL (65-115); Lipase 29 U/L (13-60); Osmolality Calculated 291 mOsm/kg (285-295); Potassium 4.1 mmol/L (3.5-5.1); Sodium 138 mmol/L (136-145); Total Bilirubin 0.2 mg/dL (0.15-1.2); Total Protein 6.3 g/dL (6.6-8.7)
[2024-10-04] MEDS: HYDROmorphone 0.5 MG/0.5 ML INJ 1 MG IVP ×2 (03:27→07:10)
== END 2024-10-04 09:01 | disposition short-term general hospital (02) ==
PROVIDERS: Emergency Provider Emergency Medicine
DX: R31.0 Gross hematuria (principal); R33.9 Retention of urine, unspecified
CPT/HCPCS: 36415; 51702; 74177; 80053; 83690; 85025; 85610; 85730; 86140; 86850; 86900; 96374; 96375; 96376; 99285; J1171; J2270; J2405; J9999

== ENCOUNTER 2024-10-14 22:35 | Emergency (ER) | payer OTHER, SELFPAY ==
[2024-10-14 22:38] VITALS: BP 163/89; PULSE 98; RESP 16; TEMP 36.7; O2SAT 97
--- NOTE | 2024-10-15 02:21 | W.ED.MALEGU ---
HPI - Male Genitourinary General: Chief complaint: Urogenital-Male Stated complaint: cath out 9am hasnt peed Time Seen by Provider: 10/15/24 01:53 History of Present Illness: 58-year-old man with recent prostate issues and urinary retention. He then seen here recently and had a Moody catheter placed. He then had to have cystoscopy and cauterization of bleeding areas on his prostate. Plan for prostate surgery in the near future. He had Moody taken out this morning at urology clinic. Having some suprapubic pain. Has not been able to urinate all day. No fevers. No nausea or vomiting. Related Data Previous Rx's ?Medication ?Instructions ?Recorded tamsulosin 0.4 mg capsule (Flomax) 0.4 mg PO DAILY #30 caps 09/25/24 cephalexin 500 mg tablet 500 mg PO TID 7 days #21 tabs 10/15/24 Allergies Allergy/AdvReac Type Severity Reaction Status Date / Time No Known Allergies Allergy Verified 09/25/24 05:29 Review of Systems Narrative: Constitutional symptoms: Negative except as documented in HPI. Skin symptoms: Negative except as documented in HPI. Eye symptoms: Negative except as documented in HPI. ENMT symptoms: Negative except as documented in HPI. Respiratory symptoms: Negative except as documented in HPI. Cardiovascular symptoms: Negative except as documented in HPI. Gastrointestinal symptoms: Negative except as documented in HPI. Genitourinary symptoms: Negative except as documented in HPI. Musculoskeletal symptoms: Negative except as documented in HPI. Neurologic symptoms: Negative except as documented in HPI. Psychiatric symptoms: Negative except as documented in HPI. Endocrine symptoms: Negative except as documented in HPI. PFS ED PFSH: Social History Smoking and tobacco/nicotine status: never used tobacco/nicotine Physical Exam Narrative: EXAM NARRATIVE: General: Alert, no acute distress. Skin: warm and dry Head: Normocephalic Neck: Trachea midline Eye: Extraocular movements are intact. Ears, nose, mouth and throat: Oral mucosa moist Respiratory: Respirations are non-labored Musculoskeletal: Normal ROM Gastrointestinal: Suprapubic pain to palpation. Neurological: Alert and oriented, No focal neurological deficit observed. Psychiatric: Cooperative, appropriate mood & affect. Course Vital Signs: Vital signs: Vital Signs Temperature 98.1 F 10/14/24 22:38 Pulse Rate 66 10/15/24 04:13 Respiratory Rate 18 10/15/24 02:39 Blood Pressure 168/107 10/15/24 04:13 Pulse Oximetry 94 10/15/24 04:13 Oxygen Delivery Me thod Room Air 10/15/24 02:39 MDM - Male Medical Decision Making Medical decision making: Differential diagnosis for patient with urinary retention including but not limited to and based on the above HPI, review of systems and physical exam:-: Urinary retention. Urinary tract infection. concerns for systemic infection, renal dysfunction Orders placed to evaluate differential diagnosis based on the above differential, HPI and physical exam Consultation: I spoke with Dr. Wilson who is the patient's urologist. He does recommend Moody placement. No contraindication to this being done here in the emergency room. Lab Review: Laboratory results were reviewed and interpreted by myself the emergency room physician. No leukocytosis. No anemia. No renal failure. Urinalysis shows some blood and no bacteria. Will not place him on antibiotics prophylactically. I reviewed the patient's medical record. Reexamination: Moody was placed. Over 500 cc out. Patient is tolerating. Assessment and plan: Urinary retention - Discharged home - Discussed plan with patient. Answered any questions. - Evaluation and treatment of this problem were appropriate in the emergency setting. Lab Data 10/15/24 04:20 10/15/24 04:20 Laboratory Results WBC 8.81 10^3/uL (3.29-11.43) 10/15/24 04:20 RBC 4.27 10^6/uL (3.85-5.65) 10/15/24 04:20 Hgb 12.30 g/dL (11.27-16.99) 10/15/24 04:20 Hct 38.3 % (37-53) 10/15/24 04:20 MCV 89.7 fl (82-101) 10/15/24 04:20 MCH 28.8 pg (27-33) 10/15/24 04:20 MCHC 32.1 g/dL (30-55) 10/15/24 04:20 RDW 14.2 % (12.1-15.1) 10/15/24 04:20 Plt Count 216 10^3/cmm (157-399) 10/15/24 04:20 MPV 9.5 fL (7.4-10.4) 10/15/24 04:20 Neut % (Auto) 79.4 % 10/15/24 04:20 Lymph % (Auto) 11.7 % 10/15/24 04:20 [place] % (Auto) 6.8 % 10/15/24 04:20 Eos % (Auto) 0.9 % 10/15/24 04:20 Baso % (Auto) 0.3 % 10/15/24 04:20 Neut # (Auto) 6.99 10^3/uL (1.8-7.7) 10/15/24 04:20 Lymph # (Auto) 1.0 10^3/uL (0.8-4.8) 10/15/24 04:20 [place] # (Auto) 0.6 10^3/uL (0.2-0.9) 10/15/24 04:20 Eos # (Auto) 0.1 10^3/uL (0.0-0.8) 10/15/24 04:20 Baso # (Auto) 0.0 10^3/uL (0.0-0.1) 10/15/24 04:20 Nucleated RBC % (auto) 0 % 10/15/24 04:20 Nucleated RBCs # 0.0 /100WBC 10/15/24 04:20 Sodium 138 mmol/L (136-145) 10/15/24 04:20 Potassium 4.0 mmol/L (3.5-5.1) 10/15/24 04:20 Chloride 103 mmol/L (98-107) 10/15/24 04:20 Carbon Dioxide 23 mmol/L (22-29) 10/15/24 04:20 Anion Gap 16.0 (5-19) 10/15/24 04:20 BUN 19 mg/dL (6-20) 10/15/24 04:20 Creatinine 1.1 mg/dL (0.7-1.2) 10/15/24 04:20 GFR Calculation 68.5 mL/min (90-130) L 10/15/24 04:20 Glucose 132 mg/dL (65-115) H 10/15/24 04:20 Calculated Osmolality 290 mOsm/kg (285-295) 10/15/24 04:20 Calcium 9.1 mg/dL (8.5-10.5) 10/15/24 04:20 Urine Color Dark yellow (Yellow) A 10/15/24 03:18 Urine Appearance Cloudy (CLEAR) A 10/15/24 03:18 Urine pH 5.5 (5-7) 10/15/24 03:18 Ur Specific Paden 1.022 (1.005-1.030) 10/15/24 03:18 Urine Protein 2+ (Negative) A 10/15/24 03:18 Urine Glucose (UA) Negative (Normal) 10/15/24 03:18 Urine Ketones Trace (Negative) 10/15/24 03:18 Urine Blood 3+ (Negative) A 10/15/24 03:18 Urine Nitrate Negative (Negative) 10/15/24 03:18 Urine Bilirubin Negative (Negative) 10/15/24 03:18 Urine Urobilinogen 1.0 mg/dL (Negative) 10/15/24 03:18 Ur Leukocyte Esterase Negative (Negative) 10/15/24 03:18 Urine RBC 51-100 /hpf (0-2) H 10/15/24 03:18 Urine WBC 0-5 /hpf (0-5) 10/15/24 03:18 Ur Squamous Epith Cells 0-5 /hpf (0-5) 10/15/24 03:18 Amorphous Sediment Not Reportable 10/15/24 03:18 Urine Bacteria None seen /hpf (NONE) 10/15/24 03:18 Hyaline Casts 0.81 /lpf 10/15/24 03:18 Urine Mucus 2+ /hpf 10/15/24 03:18 Urine Yeast Trace /hpf 10/15/24 03:18 All radiology interpretation(s) finalized by discharge Discharge Plan Discharge Patient Disposition: Home Clinical Impression: Urinary retention Condition: Stable Prescriptions: New cephalexin 500 mg tablet 500 mg PO TID 7 Days Qty: 21 0RF No Action tamsulosin [Flomax] 0.4 mg capsule 0.4 mg PO DAILY Qty: 30 0RF Discharge Orders: Discharge ED (Routine); Ordered 10/15/24 Ordered By: Olga Delcid Referrals: Pradeep Oviedo MD [Primary Care Provider, [facility]] Discharge Diet: As Directed Discharge Activity: Increase activity as tolerated Patient Instructions: Moody Catheter Placement and Care (ED), How to Change a Catheter Drainage Bag (DC), Opioid Safety, Pain Management Activity Restrictions/Additional Instructions: Follow-up with Dr. Wilson as instructed. Thank you for choosing [facility] for your healthcare needs today. You have been screened and evaluated and felt safe for discharge. Health conditions do change or evolve sometimes and as such it is important that you follow up with your Primary Doctor to be re checked, 3-5 days is a general good time frame for follow up. You are always welcome to return to the ED for re assessment if your symptoms are worsening or you have new concerns Print Language: Yemeni Coding Level of Care Code ED Home Demonstrator for Zeina Lovelace
[2024-10-15 02:39] VITALS: PULSE 92; RESP 18; O2SAT 97
[2024-10-15 04:13] VITALS: BP 168/107; PULSE 66; O2SAT 94
[2024-10-15 04:17] LABS: Bilirubin Urine Negative (Negative); Blood Urine 3+ (Negative); Glucose Urine UA Negative (Normal); Ketones Urine Trace (Negative); Leukocyte Esterase Urine Negative (Negative); Nitrate Urine Negative (Negative); Protein Urine 2+ (Negative); Specific Gravity, Urine 1.022 (1.005-1.030); Urine Appearance Cloudy (CLEAR); pH Urine 5.5 (5-7)
[2024-10-15 04:22] LABS: Bacteria Urine None Seen /hpf; Hyaline Casts Urine 0.81 /lpf; RBC Urine 51-100 /hpf (0-2); Squamous Epithelial Cell Urine 0-5 /hpf (0-5); WBC Urine 0-5 /hpf (0-5)
[2024-10-15 04:23] LABS: Basophils % 0.3 %; Eosinophils # 0.1 10^3/uL (0.0-0.8); Eosinophils % 0.9 %; Hematocrit 38.3 % (37-53); Lymphocytes % 11.7 %; Mean Corpuscular HGB Conc 32.1 g/dL (30-55); Mean Corpuscular Hemoglobin 28.8 pg (27-33); Mean Corpuscular Volume 89.7 fl (82-101); Mean Platelet Volume 9.5 fL (7.4-10.4); Monocytes # 0.6 10^3/uL (0.2-0.9); Monocytes % 6.8 %; Neutrophils # 6.99 10^3/uL (1.8-7.7); Neutrophils % 79.4 %; Nucleated Red Blood Cells % 0 %; Platelet Count 216 10^3/cmm (157-399); Red Blood Count 4.27 10^6/uL (3.85-5.65); Red Cell Distribution Width 14.2 % (12.1-15.1); White Blood Count 8.81 10^3/uL (3.29-11.43)
[2024-10-15 04:35] LABS: UA Slide Review UA Slide Review Perf; Urine Color Dark Yellow (Yellow)
[2024-10-15 04:36] LABS: Add Urine Culture? Yes; Mucus Urine 2+ /hpf
[2024-10-15 04:44] LABS: Blood Urea Nitrogen 19 mg/dL (6-20); Calcium 9.1 mg/dL (8.5-10.5); Carbon Dioxide 23 mmol/L (22-29); Chloride 103 mmol/L (98-107); Creatinine Clr Calc Pharmacy 85.8044; Glomerular Filtration Rate 68.5 mL/min (90-130); Glucose 132 mg/dL (65-115); Osmolality Calculated 290 mOsm/kg (285-295); Sodium 138 mmol/L (136-145)
[2024-10-15 05:53] VITALS: BP 169/102; PULSE 86; RESP 16; O2SAT 98
== END 2024-10-15 05:55 | disposition home or self-care (01) ==
PROVIDERS: Emergency Provider Emergency Medicine; PCP Family Medicine
DX: R33.9 Retention of urine, unspecified (principal)
CPT/HCPCS: 36415; 51702; 51798; 80048; 81001; 85025; 87086; 99283